=== PATIENT | female | born 1980 | race Caucasian/White ===

== ENCOUNTER 2023-11-02 19:36 | Emergency (ER) | payer BC ==
[2023-11-02 19:58] VITALS: TEMP 98.3
[2023-11-02 20:23] LABS: Basophils % (A) 0 %; Eosinophils # (A) 0.1 k/uL (0-0.7); Eosinophils % (A) 1 %; Lymphocytes # (A) 1.3 k/uL (1.0-4.8); Lymphocytes % (A) 15 %; MCHC 33.3 g/dL (31.0-37.0); MCV 96.3 fL (80.0-100.0); Mean Platelet Volume 8.3; Monocytes # (A) 0.6 k/uL (0-1.0); Monocytes % (A) 6 %; Neutrophils # (A) 6.8 k/uL (1.3-7.7); Neutrophils % (A) 76 %; Platelet Count 304 k/uL (150-450); RBC 4.36 m/uL (3.80-5.40); RDW 12.2 % (11.5-15.5); WBC 8.9 k/uL (3.8-10.6)
[2023-11-02 20:25] LABS: Appearance,Urine Clear (Clear); Bilirubin,Urine Negative (Negative); Blood,Urine Negative (Negative); Color,Urine Brown; Glucose,Urine (UA) Negative (Negative); Ketones,Urine Negative (Negative); Leukocyte Esterase,Urine Negative (Negative); Nitrite,Urine Negative (Negative); PH, Urine 5.5 (5.0-8.0); Protein,Urine Negative (Negative); Urobilinogen,Urine <2.0 mg/dL (<2.0)
--- NOTE | 2023-11-02 20:42 | ED ---
General Adult HPI - General Chief complaint: Abdominal Pain Stated complaint: abd pain back pain UTI Time Seen by Provider: 11/02/23 20:16 Source: patient, RN notes reviewed Mode of arrival: ambulatory Limitations: no limitations - History of Present Illness Initial comments: 43-year-old female presents to the emergency department for evaluation of epig astric discomfort and right flank pain. Patient states that started yesterday in the right flank. She notes that today she has had on and off pain in the epigastric region that is severe, shooting pain. She states that it comes and goes lasting for few minutes at a time. Denies any prior abdominal surgeries. Denies recent fever, chills. Admits to nausea. - Related Data Previous Rx's Medication Instructions Recorded Omeprazole [PriLOSEC] 20 mg PO AC-BRKFST #14 cap 11/02/23 Ondansetron Odt [Zofran Odt] 4 mg PO Q8HR PRN #10 tab 11/02/23 Allergies Allergy/AdvReac Type Severity Reaction Status Date / Time No Known Allergies Allergy Verified 11/02/23 19:50 Review of Systems ROS Statement: Those systems with pertinent positive or pertinent negative responses have been documented in the HPI. ROS Other: All systems not noted in ROS Statement are negative. Past Medical History Past Medical History: No Reported History History of Any Multi-Drug Resistant Organisms: None Reported Past Surgical History: Breast Surgery Past Psychological History: No Psychological Hx Reported Smoking Status: Former smoker Past Alcohol Use History: Occasional Past Drug Use History: None Reported General Exam Limitations: no limitations General appearance: alert, in no apparent distress Head exam: Present: atraumatic, normocephalic, normal inspection Eye exam: Present: normal appearance, PERRL, EOMI. Absent: scleral icterus, conjunctival injection, periorbital swelling ENT exam: Present: normal exam, mucous membranes moist Respiratory exam: Present: normal lung sounds bilaterally. Absent: respiratory distress, wheezes, rales, rhonchi, stridor Cardiovascular Exam: Present: regular rate, normal rhythm, normal heart sounds. Absent: systolic murmur, diastolic murmur, rubs, gallop, clicks GI/Abdominal exam: Present: soft, tenderness (Epigastric), normal bowel sounds. Absent: distended, guarding, rebound, rigid Extremities exam: Present: normal inspection Back exam: Present: normal inspection Neurological exam: Present: alert, oriented X3 Psychiatric exam: Present: normal affect, normal mood Skin exam: Present: warm, dry, intact, normal color. Absent: rash Course Vital Signs 11/02/23 11/02/23 19:47 23:00 Temperature 98.3 F Pulse Rate 82 74 Respiratory 18 16 Rate Blood Pressure 123/69 111/64 O2 Sat by Pulse 100 99 Oximetry Medical Decision Making - Medical Decision Making Was pt. sent in by a medical professional or institution (, PA, BRAND MARKETING SPECIALIST, urgent care, hospital, or prison...) When possible be specific @ -No Did you speak to anyone other than the patient for history (EMS, parent, family, police, friend...)? What history was obtained from this source @ -No Did you review nursing and triage notes (agree or disagree)? Why? @ -I reviewed and agree with nursing and triage notes Were old charts reviewed (outside hosp., previous admission, EMS record, old EKG, old radiological studies, urgent care reports/EKG's, prison records)? Report findings @ -No old charts were reviewed Differential Diagnosis (chest pain, altered mental status, abdominal pain women, abdominal pain men, vaginal bleeding, weakness, fever, dyspnea, syncope, headache, dizziness, GI bleed, back pain, seizure, CVA, palpatations, mental health, musculoskeletal)? @ -Differential Abdominal Pain Men: Appendicitis, cholecystitis, diverticulosis, ischemic bowel, pancreatitis, hepatitis, UTI, gastroenteritis, AAA, incarcerated hernia, bowel obstruction, constipation, inflammatory bowel, hepatitis, peptic ulcer disease, splenic infarction, perforated viscus, testicular torsion, this is not meant to be an all-inclusive list EKG interpreted by me (3pts min.). @ -[EKG at 2017 shows sinus rhythm rate 72, FL 162, QRS 83, QTQTc 155588, no acute ST, T wave changes X-rays interpreted by me (1pt min.). @ -Chest x-ray shows no acute infiltrate CT interpreted by me (1pt min.). @ -CT abdomen pelvis obtained which shows a 5.4 cm thin-walled hepatic cyst, no acute intra abdominal process U/S interpreted by me (1pt. min.). @ -None done What testing was considered but not performed or refused? (CT, X-rays, U/S, labs)? Why? @ -None What meds were considered but not given or refused? Why? @ -None Did you discuss the management of the patient with other professionals (mohan villareal i.e. , PA, BRAND MARKETING SPECIALIST, lab, RT, psych nurse, social sciences department chair, commercial litigation attorney, teacher, patient safety officer, major case detective)? Give summary @ -No Was smoking cessation discussed for >3mins.? @ -No Was critical care preformed (if so, how long)? @ -No Were there social determinants of health that impacted care today? How? (Homelessness, low income, unemployed, alcoholism, drug addiction, transportation, low edu. Level, literacy, decrease access to med. care, alf, rehab)? @ -No Was there de-escalation of care discussed even if they declined (Discuss DNR or withdrawal of care, Hospice)? DNR status @ -No What co-morbidities impacted this encounter? (DM, HTN, Smoking, COPD, CAD, Cancer, CVA, ARF, Chemo, Hep., AIDS, mental health diagnosis, sleep apnea, morbid obesity)? @ -None Was patient admitted / discharged? Hospital course, mention meds given and route, prescriptions, significant lab abnormalities, going to OR and other pertinent info. @ -Discharge. Patient presented to the emergency department for evaluation of epigastric abdominal discomfort started yesterday. Laboratory studies obtained. CBC unremarkable, CMP unremarkable; UA shows no evidence of infectious process, negative urine hCG. CT abdomen pelvis obtained which shows a 5.4 cm thin-walled hepatic cyst but no acute intra-abdominal process. Chest x-ray shows no acute process. Patient advised on these findings, provided pain co ntrol medications in the ED. advised to follow-up with GI. Patient understanding and agreeable with this plan. Patient stable at time of discharge. Case discussed with Dr. Ríos Undiagnosed new problem with uncertain prognosis? @ -No Drug Therapy requiring intensive monitoring for toxicity (Heparin, Nitro, Insulin, Cardizem)? @ -No Were any procedures done? @ -No Diagnosis/symptom? @ -Abdominal pain Acute, or Chronic, or Acute on Chronic? @ -acute Uncomplicated (without systemic symptoms) or Complicated (systemic symptoms)? @ -uncomplicated Side effects of treatment? @ -No Exacerbation, Progression, or Severe Exacerbation? @ -No Poses a threat to life or bodily function? How? (Chest pain, [place], NE, pneumonia, PE, COPD, DKA, ARF, appy, cholecystitis, CVA, Diverticulitis, Homicidal, Suicidal, threat to staff... and all critical care pts) @ -No - Lab Data Result diagrams: 11/02/23 19:53 11/02/23 19:53 Lab Results 11/02/23 11/02/23 11/02/23 Range/Units 19:53 19:53 19:53 WBC 8.9 (3.8-10.6) k/uL RBC 4.36 (3.80-5.40) m/uL Hgb 14.0 (11.4-16.0) gm/dL Hct 42.0 (34.0-46.0) % MCV 96.3 (80.0-100.0) fL MCH 32.0 (25.0-35.0) pg MCHC 33.3 (31.0-37.0) g/dL RDW 12.2 (11.5-15.5) % Plt Count 304 (150-450) k/uL MPV 8.3 Neutrophils % 76 % Lymphocytes % 15 % Monocytes % 6 % Eosinophils % 1 % Basophils % 0 % Neutrophils # 6.8 (1.3-7.7) k/uL Lymphocytes # 1.3 (1.0-4.8) k/uL Monocytes # 0.6 (0-1.0) k/uL Eosinophils # 0.1 (0-0.7) k/uL Basophils # 0.0 (0-0.2) k/uL Sodium 137 (137-145) mmol/L Potassium 3.9 (3.5-5.1) mmol/L Chloride 106 (98-107) mmol/L Carbon Dioxide 22 (22-30) mmol/L Anion Gap 9 mmol/L BUN 15 (7-17) mg/dL Creatinine 0.65 (0.52-1.04) mg/dL Est GFR (CKD-EPI)AfAm >90 (>60 ml/min/1.73 sqM) Est GFR (CKD-EPI)NonAf >90 (>60 ml/min/1.73 sqM) Glucose 112 H (74-99) mg/dL Calcium 9.5 (8.4-10.2) mg/dL Total Bilirubin 0.5 (0.2-1.3) mg/dL AST 20 (14-36) U/L ALT 15 (4-34) U/L Alkaline Phosphatase 69 (38-126) U/L Total Protein 6.9 (6.3-8.2) g/dL Albumin 4.2 (3.5-5.0) g/dL Amylase 61 (30-110) U/L Lipase 88 (23-300) U/L Urine Color Brown Urine Appearance Clear (Clear) Urine pH 5.5 (5.0-8.0) Ur Specific [place] 1.010 (1.001-1.035) Urine Protein Negative (Negative) Urine Glucose (UA) Negative (Negative) Urine Ketones Negative (Negative) Urine Blood Negative (Negative) Urine Nitrite Negative (Negative) Urine Bilirubin Negative (Negative) Urine Urobilinogen <2.0 (<2.0) mg/dL Ur Leukocyte Esterase Negative (Negative) Urine HCG, Qual (Not Detectd) 11/02/23 Range/Units 20:44 WBC (3.8-10.6) k/uL RBC (3.80-5.40) m/uL Hgb (11.4-16.0) gm/dL Hct (34.0-46.0) % MCV (80.0-100.0) fL MCH (25.0-35.0) pg MCHC (31.0-37.0) g/dL RDW (11.5-15.5) % Plt Count (150-450) k/uL MPV Neutrophils % % Lymphocytes % % Monocytes % % Eosinophils % % Basophils % % Neutrophils # (1.3-7.7) k/uL Lymphocytes # (1.0-4.8) k/uL Monocytes # (0-1.0) k/uL Eosinophils # (0-0.7) k/uL Basophils # (0-0.2) k/uL Sodium (137-145) mmol/L Potassium (3.5-5.1) mmol/L Chloride (98-107) mmol/L Carbon Dioxide (22-30) mmol/L Anion Gap mmol/L BUN (7-17) mg/dL Creatinine (0.52-1.04) mg/dL Est GFR (CKD-EPI)AfAm (>60 ml/min/1.73 sqM) Est GFR (CKD-EPI)NonAf (>60 ml/min/1.73 sqM) Glucose (74-99) mg/dL Calcium (8.4-10.2) mg/dL Total Bilirubin (0.2-1.3) mg/dL AST (14-36) U/L ALT (4-34) U/L Alkaline Phosphatase (38-126) U/L Total Protein (6.3-8.2) g/dL Albumin (3.5-5.0) g/dL Amylase (30-110) U/L Lipase (23-300) U/L Urine Color Urine Appearance (Clear) Urine pH (5.0-8.0) Ur Specific [place] (1.001-1.035) Urine Protein (Negative) Urine Glucose (UA) (Negative) Urine Ketones (Negative) Urine Blood (Negative) Urine Nitrite (Negative) Urine Bilirubin (Negative) Urine Urobilinogen (<2.0) mg/dL Ur Leukocyte Esterase (Negative) Urine HCG, Qual Not Detected (Not Detectd) Disposition Clinical Impression: Hepatic cyst Disposition: HOME SELF-CARE Condition: Stable Instructions (If sedation given, give patient instructions): Acute Abdominal Pain (ED) Additional Instructions: Alternate Tylenol and Motrin as needed for pain. Utilize the nausea medication. Follow up with GI and your primary care provider. Return to the emergency department for new or worsening symptoms. Prescriptions: Omeprazole [PriLOSEC] 20 mg PO AC-BRKFST #14 cap Ondansetron Odt [Zofran Odt] 4 mg PO Q8HR PRN #10 tab PRN Reason: Nausea Is patient prescribed a controlled substance at d/c from ED?: No Referrals: Yasir Armijo MD [Primary Care Provider] - 1-2 days Janine Whitaker MD [STAFF PHYSICIAN] - 1-2 days
[2023-11-02 20:55] LABS: ALT 15 U/L (4-34); AST 20 U/L (14-36); African American GFR (CKD) >90 (>60 ml/min/1.73 sqM); Albumin 4.2 g/dL (3.5-5.0); Alkaline Phosphatase 69 U/L (38-126); Amylase 61 U/L (30-110); Anion Gap 9 mmol/L; Blood Urea Nitrogen 15 mg/dL (7-17); Calcium 9.5 mg/dL (8.4-10.2); Carbon Dioxide 22 mmol/L (22-30); Chloride 106 mmol/L (98-107); Glucose 112 mg/dL (74-99); Lipase 88 U/L (23-300); Non-African American GFR(CKD) >90 (>60 ml/min/1.73 sqM); Potassium 3.9 mmol/L (3.5-5.1); Sodium 137 mmol/L (137-145); Total Bilirubin 0.5 mg/dL (0.2-1.3); Total Protein 6.9 g/dL (6.3-8.2)
--- NOTE | 2023-11-02 21:01 | XR ---
EXAMINATION TYPE: XR chest 2V DATE OF EXAM: 11/02/2023 8:56 PM CLINICAL INDICATION:Female, 43 years old with history of pain; [facility] COMPARISON: None TECHNIQUE: XR chest 2V Frontal and lateral views of the chest. FINDINGS: Lungs/Pleura: There is no evidence of pleural effusion, focal consolidation, or pneumothorax. Pulmonary vascularity: Unremarkable. Heart/mediastinum: Cardiomediastinal silhouette is unremarkable. Musculoskeletal: No acute osseous pathology. IMPRESSION: No acute cardiopulmonary disease/process.
--- NOTE | 2023-11-02 23:03 | CT ---
EXAMINATION TYPE: CT abdomen pelvis w con DATE OF EXAM: 11/02/2023 HISTORY: Right upper quadrant abdominal pain into right flank CT DLP: 548.1mGycm Automated Exposure Control for Dose Reduction was Utilized. CONTRAST: CT scan of the abdomen and pelvis is performed with IV Contrast, patient injected with 100ml mL of Is ovue 300. COMPARISON: None. FINDINGS: LUNG BASES: No significant abnormality is appreciated. LIVER/GB: There is 5.4 cm thin-walled cyst in the left hepatic lobe axial image 12. Gallbladder appea rs within normal limits on CT. No biliary dilatation. PANCREAS: No significant abnormality is seen. SPLEEN: No significant abnormality is seen. ADRENALS: No significant abnormality is seen. KIDNEYS: Symmetric corticomedullary uptake and excretion without hydronephrosis seen bilaterally. BOWEL: No abnormal small or large bowel dilatation. UTERUS/ADNEXA: Anteverted uterus. Prominent draining left-sided ovarian veins, cannot exclude pelvic congestion syndrome in the appropriate clinical setting. , LYMPH NODES: No greater than 1cm abdominal or pelvic lymph nodes are appreciated. OSSEOUS STRUCTURES: No significant abnormality is seen. OTHER: No significant additional abnormality is seen. IMPRESSION: No significant acute finding is seen to account for patient's clinical symptoms of right upper quadrant and right flank pain.
[2023-11-02] MEDS: ONDANSETRON 4 MG ODT STARTER PACK 2 TAB BTL PO STA (23:25)
[2023-11-02 23:28] VITALS: BP 111/64; PULSE 74; RESP 16
== END 2023-11-02 23:30 | disposition home or self-care (01) ==
LOC: EC 19:36
DX: K76.89 Other specified diseases of liver (principal); Z87.891 Personal history of nicotine dependence
CPT/HCPCS: 36415; 93005; 80053; 82150; 83690; 85025; 81003; 81025; 71046; 74177; 99285; S0119; Q9967

== ENCOUNTER → 2024-05-15 | Outpatient (CLI) | payer BC ==
[2024-05-15 20:37] LABS: Basophils # (A) 0.04 X 10*3/uL (0.00-0.10); Basophils % (A) 0.5 %; Eosinophils # (A) 0.04 X 10*3/uL (0.04-0.35); Eosinophils % (A) 0.5 %; HCT 41.2 % (37.2-46.3); HGB 13.6 g/dL (12.0-15.0); Lymphocytes % (A) 34.4 %; MCH 31.6 pg (27.0-32.0); MCV 95.6 FL (80.0-97.0); Mean Platelet Volume 10.5 FL (9.5-12.2); Monocytes # (A) 0.56 X 10*3/uL (0.20-1.00); Monocytes % (A) 6.9 %; NRBC Per 100 WBC 0 X 10*3/uL (0.00-0.01); Neutrophils # (A) 4.66 X 10*3/uL (1.80-7.70); Neutrophils % (A) 57.3 %; Platelet Count 269 X 10*3/uL (140-440); RBC 4.31 X 10*6/uL (4.10-5.20); RDW 12.4 % (11.5-14.5); WBC 8.13 X 10*3/uL (4.50-10.00)
== END | disposition home or self-care (01) ==
LOC: LABWHC1 11:18
PROVIDERS: ATTEND Obstetrics & Gynecology
DX: Z01.812 Encounter for preprocedural laboratory examination (principal); N93.9 Abnormal uterine and vaginal bleeding, unspecified
CPT/HCPCS: 36415; 85025

== ENCOUNTER → 2024-12-09 | Outpatient (CLI) | payer BC ==
--- NOTE | 2024-12-09 16:07 | CA ---
Transthoracic Echo Report Name: Frida Schmitt Age: 44 Gender: F : 1980 Exam Date: 12/09/2024 08:40 Exam Location: [facility] Ht (in): 64 Wt (lb): 135 Ordering Physician: Yasir Armijo MD Attending/Referring Phys: Vern Isaacs PAC Produce Department Supervisor Sparkle Mcfarland, ROYA Procedure CPT: Indications: Z82.49 FAMILY HX OF ISCHEM HEART DIS Cardiac Hx: Technical Quality: Good Contrast 1: Total Dose (mL): Contrast 2: Total Dose (mL): MEASUREMENTS (Male / Female) Normal Values 2D ECHO LV Diastolic Diameter PLAX 3.9 cm 4.2 - 5.9 / 3.9 - 5.3 cm LV Systolic Diameter PLAX 2.8 cm IVS Diastolic Thickness 1.1 cm 0.6 - 1.0 / 0.6 - 0.9 cm LVPW Diastolic Thickness 1.2 cm 0.6 - 1.0 / 0.6 - 0.9 cm LV Relative Wall Thickness 0.6 RV Internal Dim ED PLAX 2.6 cm LA Systolic Diameter LX 3.2 cm 3.0 - 4.0 / 2.7 - 3.8 cm LV Diastolic Volume MOD BP 66.0 cm??? 67 - 155 / 56 - 104 cm??? LV Systolic Volume MOD BP 23.2 cm??? 22 - 58 / 19 - 49 cm??? LV Ejection Fraction MOD BP 64.9 % >= 55 % LV Cardiac Index MOD BP 1616.7 cm???/min???m??? LV Diastolic Volume MOD 4C 72.7 cm??? LV Systolic Volume MOD 4C 26.0 cm??? LV Ejection Fraction MOD 4C 64.3 % LV Cardiac Index MOD 4C 1764.6 cm???/min???m??? LV Diastolic Length 4C 8.0 cm LV Systolic Length 4C 6.0 cm LV Diastolic Volume MOD 2C 60.1 cm??? LV Systolic Volume MOD 2C 19.5 cm??? LV Ejection Fraction MOD 2C 67.6 % LV Cardiac Index MOD 2C 1535.4 cm???/min???m??? LV Diastolic Length 2C 7.8 cm LV Systolic Length 2C 6.4 cm M-MODE Aortic Root Diameter MM 3.0 cm LA Systolic Diameter MM 3.7 cm LA Ao Ratio MM 1.2 AV Cusp Separation MM 2.0 cm DOPPLER Mitral E Point Velocity 59.4 cm/s Mitral A Point Velocity 44.9 cm/s Mitral E to A Ratio 1.3 MV Deceleration Time 331.1 ms MV E' Velocity 9.1 cm/s Mitral E to MV E' Ratio 6.6 TR Peak Velocity 221.3 cm/s TR Peak Gradient 19.6 mmHg Right Ventricular Systolic Press 24.6 mmHg FINDINGS Left Ventricle Left ventricular ejection fraction is estimated at 55-60 %. Normal Left ventricular size, wall thickness, systolic function with no obvious regional wall motion abnormalities. Normal Left ventricular diastolic filling pattern. Right Ventricle Normal right ventricular size and function. Right ventricular systolic pressure within normal limits. Right Atrium Normal right atrial size. Left Atrium Normal left atrial size. Mitral Valve Structurally normal mitral valve. Trace to mild mitral regurgitation. No mitral stenosis. Aortic Valve Trileaflet aortic valve. No aortic valve stenosis or regurgitation. Tricuspid Valve Structurally normal tricuspid valve. Mild tricuspid regurgitation. No tricuspid stenosis. Pulmonic Valve Structurally normal pulmonic valve. Trace pulmonic regurgitation. No pulmonic stenosis. Pericardium No pericardial or pleural effusion. Aorta Normal size aortic root and proximal ascending aorta. CONCLUSIONS Left ventricular ejection fraction 55 to 60% RVSP 25 Trace to mild mitral regurgitation Mild tricuspid regurgitation No pericardial effusion Previewed by: Dr. Evan Marie DO (Electronically Signed) Final Date: 09 December 2024 16:06
--- NOTE | 2024-12-09 16:39 | CA ---
Exercise Stress Test Report Name: Frida Schmitt Exam Date: 12/09/2024 09:03 Exam Location: [place] Stress Ht (in): 64 Wt (lb): 135 BSA: 1.66 Ordering Phys: Yasir Armijo MD Referring Phys: Vern Isaacs Technologist: Miko Hatch Age: 44 Gender: F : 1980 Procedure CPT: Indications: Z82.49 FAMILY HX OF ISCHEM HEART DIS ICD-10 Codes: Patient History: Family history of heart disease. Medications: Meds past 24 hrs: Pretest Chest Pain: STRESS TEST Gigi Protocol Exercise Duration (min:sec): 11:[address] Depressions (mm): Angina Score: Eldridge Score: Resting HR (bpm): 58 Peak HR (bpm): 157 Resting BP (mmHg): 103 / 70 Peak BP (mmHg): 160 / 72 MPHR: 175 Target HR: 149 % MPHR: 90 METS: 12.1 Total Dose: Peak Dose: Atropine: Double Product: 12983 BP Response: Stress Termination: Reached target heart rate Stress Symptoms: No chest pain or symptoms Stress Summary: ECG ANALYSIS Resting ECG: Stress ECG: CONCLUSIONS Patient underwent exercise stress EKG with a Gigi protocol treadmill stress test. Patient exercised into Stage 4 for a total of 11 minutes and 59 seconds reaching a total of 12.1 METS. Patient's maximum heart rate was 157 which represented 89% age-predicted maximum heart rate. Stress EKG findings: At baseline patient's EKG showed normal sinus rhythm, normal axis, no significant ST or T wave abnormality. At peak exercise, EKG showed no change from baseline. Conclusions: 1. Normal EKG response to exercise without evidence of inducible ischemia. 2. Excellent exercise capacity. Dr. Evan Marie DO (Electronically Signed) Final Date: 09 December 2024 16:39
== END | disposition home or self-care (01) ==
LOC: RADECHMAIN 08:29
PROVIDERS: ATTEND Family Medicine
DX: I08.1 Rheumatic disorders of both mitral and tricuspid valves (principal); Z82.49 Family history of ischemic heart disease and other diseases of the circulatory system
CPT/HCPCS: 93017; 93306

== ENCOUNTER 2024-12-18 11:42 | Day surgery (SDC) | payer BC ==
[2024-12-16 09:58] VITALS: BMI 23.1
[2024-12-18 12:50] VITALS: TEMP 97.5
[2024-12-18] MEDS: LACTATED RINGERS 1,000 ML IV SCH (12:59)
[2024-12-18] MEDS: LACTATED RINGERS 1,000 ML IV ONE (12:59)
[2024-12-18] MEDS ORDERED: PROPOFOL 10 MG/ML 20 ML VIAL IV ONE (13:30)
--- NOTE | 2024-12-18 13:43 | P.PCN ---
Date of Procedure: 12/18/24 Procedure(s) Performed: BRIEF HISTORY: Patient is a 44-year-old pleasant white female scheduled for an elective colonoscopy as a part of screening for colon cancer and family history of colon cancer. Her maternal grandmother was diagnosed with colon cancer. PROCEDURE PERFORMED: Colonoscopy. PREOPERATIVE DIAGNOSIS: Screening for colon cancer and family history of colon cancer. IV sedation per Anesthesia. PROCEDURE: After informed consent was obtained, the patient, was brought into the endoscopy unit. IV sedation was administered by Anesthesia under continuous monitoring. Digital rectal examination was normal. Initially the Olympus CF-160 flexible video colonoscope was then inserted in the rectum, gradually advanced into the cecum without any difficulty. Careful examination was performed as the scope was gradually being withdrawn. Ileocecal valve and the appendiceal orifice were visualized and appeared normal. Prep was excellent. Mucosa of the cecum, ascending colon, transverse colon, descending colon, sigmoid colon, and rectum appeared normal. Retroflexion was performed in the rectum and no lesions were seen. The patient tolerated the procedure well. IMPRESSION: Normal-appearing colon from rectum to cecum with no evidence of colorectal neoplasia. RECOMMENDATIONS: Findings of this examination were discussed with the patient as well as her family.. She was advised to have repeat screening colonoscopy in 10 years.
[2024-12-18 13:49] VITALS: PULSE 63
[2024-12-18 14:02] VITALS: BP 119/69; RESP 18
== END 2024-12-18 14:16 | disposition home or self-care (01) ==
LOC: ORWHC2ENDO 11:42
PROVIDERS: ATTEND Internal Medicine Gastroenterology
DX: Z12.11 Encounter for screening for malignant neoplasm of colon (principal); Z80.0 Family history of malignant neoplasm of digestive organs
CPT/HCPCS: 81025; 45378; J2704